=== PATIENT | female | born 1960 | race Caucasian/White ===

== ENCOUNTER → 2020-07-23 | Outpatient (CLI) | payer OTHER ==
[~2020-07-23] MED LIST: PHENERGAN 25 MG25 M1 PO; SIMVASTATIN10 MG; [UNRECOGNIZED DRUG - REMARK]
== END ==
LOC: SJCVCIMAG 08:01
PROVIDERS: ATTEND Internal Medicine Cardiovascular Disease
DX: I49.3 Ventricular premature depolarization (principal); I49.1 Atrial premature depolarization

== ENCOUNTER → 2021-03-09 | Outpatient (CLI) | payer OTHER | LOC: CAT 12:01 | PROVIDERS: ATTEND Internal Medicine Cardiovascular Disease | DX: Z13.6 Encounter for screening for cardiovascular disorders (principal); I25.10 Atherosclerotic heart disease of native coronary artery without angina pectoris; E78.00 Pure hypercholesterolemia, unspecified ==